=== PATIENT | male | born 1990 | race Caucasian/White ===

== ENCOUNTER 2017-03-05 15:26 | Emergency (ER) | payer OTHER ==
[~2017-03-05] VITALS: Ht 180.3 cm; Wt 84.4 kg
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
[2017-03-05] MEDS ORDERED: HYDROCODONE/APAP 5/325MG 1 EACH TABLET ONE ×2 (15:55→17:34)
[2017-03-05] MEDS ORDERED: CEFAZOLIN 1 GM ONE (15:57)
[2017-03-05] MEDS ORDERED: CEFAZOLIN 1 GM VIAL IM ONE (16:00)
[2017-03-05] MEDS ORDERED: HYDROCODONE/APAP 5/325MG 1 EACH TABLET PO ONE ×2 (16:00→17:30)
[2017-03-05] MEDS ORDERED: LIDOCAINE HCL/PF 1% 30 ML VIAL TP ONE (16:00)
[2017-03-05] MEDS ORDERED: LIDOCAINE HCL/MPF 1% 30 ML VIAL IJ ONE (16:51)
--- NOTE | 2017-03-05 16:55 | NUR ---
PA AT BEDSIDE TO REMOVE NAIL FROM LEFT HAND, ALL SUPPLIES AT BEDSIDE.
[2017-03-05 17:39] VITALS: BP 124/81
--- NOTE | 2017-03-05 17:40 | NUR ---
Patient discharged to home in stable condition. Written and verbal after care instructions given. Patient verbalizes understanding of instruction.
== END 2017-03-05 17:40 | disposition home or self-care (01) ==
LOC: ER 15:29
DX: S61.432A Puncture wound without foreign body of left hand, initial encounter (principal); W45.0XXA Nail entering through skin, initial encounter; Y93.89 Activity, other specified; Y92.89 Other specified places as the place of occurrence of the external cause; Y99.8 Other external cause status
CPT/HCPCS: 73130-TC; A4606; A6403; J0690; J3490; Z7610